=== PATIENT | female | born 1990 | race African-American/Black ===

== ENCOUNTER 2019-02-23 16:58 | Emergency (ER) | payer OTHER ==
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
[2019-02-23 18:25] LABS: Absolute Lymphocytes (CBC) 2.3 K/uL (0.7-4.9); Absolute Monocytes 0.3 K/uL (0.1-1.3); Absolute Neutrophil 1.6 K/uL (1.8-8.0); Basophils % 1.2 % (0-1.3); Eosinophils % 4.6 % (0-4.4); Lymphocytes % 51.9 % (15.3-44.8); MPV 9.6 fL (7.6-11.3); Monocytes % 7.3 % (3.3-12.3); RBC Red Blood Cell Count 4.47 M/uL (3.86-4.86)
[2019-02-23 18:46] LABS: ALT/SGPT 17 U/L (12-78); AST/SGOT 19 U/L (15-37); Albumin 3.8 g/dL (3.4-5.0); Alkaline Phosphatase 47 U/L (45-117); BUN Blood Urea Nitrogen 14 mg/dL (7-18); Bicarbonate 26 mmol/L (21-32); Bilirubin Direct < 0.1 mg/dL (0-0.2); Bilirubin Total 0.3 mg/dL (0.2-1.0); Glucose Level 89 mg/dL (74-106); Potassium 3.7 mmol/L (3.5-5.1); Protein, Total 9.3 g/dL (6.4-8.2); Sodium Level 140 mmol/L (136-145)
--- NOTE | 2019-02-23 18:58 | EDPHYS ---
Physician Documentation [facility] Name: Nida Alcantara Age: 28 yrs Sex: Female : 1990 Arrival Date: 02/23/2019 Time: 17:03 Bed 18 Private MD: ED Physician Marcial Hemphill HPI: 02/23 18:01 This 28 yrs old Black Female presents to ER via Ambulatory with complaints of Blurred kdr Vision, Weakness. 18:02 The patient has been feeling generally fatigued and weak for the past few weeks and kdr even with a good nights sleep. Today, she had a about 10 minutes of generalized blurry vision which has since resolved. She has had similar episodes in the past which have been related to anemia and poor cell counts. Onset: The symptoms/episode began/occurred gradually, 2 week(s) ago. Severity of symptoms: At their worst the symptoms were mild in the emergency department the symptoms are unchanged. The patient has experienced similar episodes in the past, a few times. The patient has not recently seen a physician. 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 - Social history:: Smoking status: Patient/guardian denies using tobacco. - Ebola Screening: : Patient negative for fever greater than or equal to 101.5 degrees Fahrenheit, and additional compatible Ebola Virus Disease symptoms Patient denies exposure to infectious person Patient denies travel to an Ebola-affected area in the 21 days before illness onset No symptoms or risks identified at this time. ROS: 18:02 Constitutional: Negative for fever, chills, and weight loss - only general fatigue and kdr weakness Eyes: Negative for injury, pain, redness, and discharge, ENT: Negative for injury, pain, and discharge, Neck: Negative for injury, pain, and swelling, Cardiovascular: Negative for chest pain, palpitations, and edema, Respiratory: Negative for shortness of breath, cough, wheezing, and pleuritic chest pain, Abdomen/GI: Negative for abdominal pain, nausea, vomiting, diarrhea, and constipation, Back: Negative for injury and pain, : Negative for injury, bleeding, discharge, and swelling, MS/Extremity: Negative for injury and deformity, Skin: Negative for injury, rash, and discoloration, Neuro: Negative for headache, weakness, numbness, tingling, and seizure activity. Psych: Negative for depression, anxiety, suicide ideation, homicidal ideation, and hallucinations, Allergy/Immunology: Negative for hives, rash, and allergies, Endocrine: Negative for neck swelling, polydipsia, polyuria, polyphagia, and marked weight changes, Hematologic/Lymphatic: Negative for swollen nodes, abnormal bleeding, and unusual bruising. Exam: 18:02 Constitutional: This is a well developed, well nourished patient who is awake, alert, kdr and in no acute distress. Head/Face: Normocephalic, atraumatic. Eyes: Pupils equal round and reactive to light, extra-ocular motions intact. Lids and lashes normal. Conjunctiva and sclera are non-icteric and not injected. Cornea within normal limits. Periorbital areas with no swelling, redness, or edema. Neck: Trachea midline, no thyromegaly or masses palpated, and no cervical lymphadenopathy. Supple, full range of motion without nuchal rigidity, or vertebral point tenderness. No Meningismus. Chest/axilla: Normal chest wall appearance and motion. Nontender with no deformity. No lesions are appreciated. Cardiovascular: Regular rate and rhythm with a normal S1 and S2. No gallops, murmurs, or rubs. Normal PMI, no JVD. No pulse deficits. Respiratory: Lungs have equal breath sounds bilaterally, clear to auscultation and percussion. No rales, rhonchi or wheezes noted. No increased work of breathing, no retractions or nasal flaring. Abdomen/GI: Soft, non-tender, with normal bowel sounds. No distension or tympany. No guarding or rebound. No evidence of tenderness throughout. Back: No spinal tenderness. No costovertebral tenderness. Full range of motion. Skin: Warm, dry with normal turgor. Normal color with no rashes, no lesions, and no evidence of cellulitis. MS/ Extremity: Pulses equal, no cyanosis. Neurovascular intact. Full, normal range of motion. Neuro: Awake and alert, GCS 15, oriented to person, place, time, and situation. Cranial nerves II-XII grossly intact. Motor strength 5/5 in all extremities. Sensory grossly intact. Cerebellar exam normal. Normal gait. Psych: Awake, alert, with orientation to person, place and time. Behavior, mood, and affect are within normal limits. Vital Signs: 17:16 BP 115 / 76; Pulse 76; Resp 16; Temp 98.2; Pulse Ox 98% ; Weight 77.11 kg; Height 5 ft. iw 5 in. (165.10 cm); 18:23 BP 128 / 94; Pulse 70; Resp 18; Pulse Ox 100% on R/A; hj 19:10 BP 121 / 80; Pulse 75; Resp 16; Temp 98.7; Pulse Ox 99% on R/A; rr5 17:16 Body Mass Index 28.29 (77.11 kg, 165.10 cm) iw MDM: 18:58 Patient medically screened. kdr 18:59 Data reviewed: vital signs, nurses notes. Counseling: I had a detailed discussion with kdr the patient and/or guardian regarding: the historical points, exam findings, and any diagnostic results supporting the discharge/admit diagnosis, lab results, the need for outpatient follow up. Special discussion: I discussed with the patient/guardian in detail that at this point there is no indication for admission to the hospital. It is understood, however, that if the symptoms persist or worsen the patient needs to return immediately for re-evaluation. 02/23 18:01 Order name: CBC with Diff kdr 02/23 18:01 Order name: Chem 7; Complete Time: 18:56 kdr 02/23 18:01 Order name: LFT's; Complete Time: 18:56 kdr 02/23 19:13 Order name: CBC Smear Scan EDMS Administered Medications: No medications were administered Disposition: 02/23/19 18:58 Discharged to Home. Impression: Chronic fatigue, unspecified, Weakness, Anemia, unspecified. - Condition is Stable. - Discharge Instructions: Anemia, Nonspecific, Fatigue, Weakness, [id number]. - Medication Reconciliation Form, Thank You Letter form. - Follow up: Private Physician; When: 2 - 3 days; Reason: If symptoms return, Further diagnostic work-up, Recheck today's complaints, Continuance of care, Re-evaluation by your physician. - Problem is new. - Symptoms are unchanged. Signatures: Dispatcher [employer] EDMS Marcial Hemphill, MD MD kdr Lara Espinoza, RN RN iw Jered Guy, RN RN rr5 Corrections: (The following items were deleted from the chart) 19:15 18:58 02/23/2019 18:58 Discharged to Home. Impression: Chronic fatigue, unspecified; rr5 Weakness; Anemia, unspecified. Condition is Stable. Forms are Medication Reconciliation Form, Thank You Letter, Antibiotic Education, Prescription Opioid Use. Follow up: Private Physician; When: 2 - 3 days; Reason: If symptoms return, Further diagnostic work-up, Recheck today's complaints, Continuance of care, Re-evaluation by your physician. Problem is new. Symptoms are unchanged. kdr
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
[2019-02-23 19:11] LABS: Platelet Estimate ADEQ; Urine White Blood Cell Casts OK
[2019-02-23 19:12] LABS: Blood Morphology Comment NOT SEEN (NOT SEEN)
== END 2019-02-23 19:15 | disposition home or self-care (01) ==
LOC: ER 16:58
DX: R53.82 Chronic fatigue, unspecified (principal); R53.1 Weakness; D64.9 Anemia, unspecified
CPT/HCPCS: 36415; 80048; 80076; 85025; 99283

== ENCOUNTER 2020-03-25 09:48 | Day surgery (SDC) | payer OTHER ==
[2020-03-25] MEDS ORDERED: Ringers Lactate 1,000 ML IV ONE (10:22)
[2020-03-25 10:38] VITALS: BMI 29.0
[2020-03-25] MEDS ORDERED: FENTANYL CITR 100 MCG/2 ML ONE ×2 (11:01→11:02)
[2020-03-25] MEDS ORDERED: MIDAZOLAM HCL 2 MG/2 ML INJ ONE ×2 (11:02)
[2020-03-25] MEDS ORDERED: FLUMAZENIL 0.1 MG/ML (5 mL VIAL) IV ONE (11:03)
[2020-03-25] MEDS ORDERED: NALOXONE 0.4 MG/ML VIAL ONE (11:04)
--- NOTE | 2020-03-25 12:57 | RAD REPORT ---
EXAM DESCRIPTION: CT - Renal Biopsy CT - 03/25/2020 12:25 pm CLINICAL HISTORY: EDEMA, FLUID Nephrotic syndrome COMPARISON: No comparisons FINDINGS: Preoperative diagnosis: Nephrotic syndrome Post operative diagnosis: Same Conscious Sedation: 45 minutes of conscious sedation utilizing fentanyl and midazolam IV. Patient was continuously monitored by nursing staff. Contrast used: NONE Estimated blood loss: less than 5 mL Specimens: 4 x 18 gauge specimens The patient was placed prone on the table and the left posterior flank area was prepped and draped in the usual sterile fashion. 1% lidocaine was infiltrated into the subcutaneous tissues for local anes thesia. Under computed tomographic guidance, a 17 gauge introducer was advanced into the lesion. Subs equently, a 18 gauge, 15 cm long, 20 mm throw core biopsy gun was advanced into the inferior left kid cris and 4 cores were obtained. Postprocedure imaging demonstrated no complications. Samples were given to pathology for analysis. Th e patient tolerated the procedure without immediate complication and transferred to the recovery room in stable condition. IMPRESSION: Successful CT-guided nonfocal left renal biopsy. 45 minutes of IV conscious sedation was utilized. All CT scans are performed using dose optimization technique as appropriate and may include automated exposure control or mA/KV adjustment according to patient size.
--- OUTSIDE RECORDS SUMMARY | 2020-03-25 13:47 | XMS REPORT | Clinical Summary ---
:1990 Author Organization [facility] Address [address] [place] [address] Care Team Providers Name Role Phone Asked, No Pcp Primary Care Provider Unavailable Allergies No Known Allergies Medications No known medications Active Problems Not on file Encounters Date Type Specialty Care Team Description 03/22/2020 Travel 03/22/2020 Transcribe Orders Procedural Cardiology Puja Kenny Murmur (Primary Dx) MD after 03/25/2019 Social History Tobacco Use Types Packs/Day Years [...] six or more drinks on one occasion? No t asked Sex Assigned at Date Recorded Not on file Job Start Date Occupation Industry Not on file Not on file Not on file Travel History Travel Start Travel End No recent travel history available. COVID-19 Exposure Response Date Recorded In the last month, have you been in contact with No / Unsure 03/22/2020 3:23 PM CDT someone who was confirmed or suspected to have Coronavirus / COVID-19? Last Filed Vital Signs Not on file Plan of Treatment Date Type Specialty Care Team Description 03/27/2020 [place] [id number] [facility] [address], [address] [place], [place] [address] 03/27/2020 Appointment Procedural Cardiology 03/27/2020 Appointment Procedural Cardiology 04/15/2020 Office Visit [place]umatology Tara Fernán[place] [address] [facility] [address] [place], [place] [address] [phone] Health Maintenance Due Date Last Done Comments CERVICAL CANCER SCREENING 2012 INFLUENZA VACCINE 04/27/2020 Results Not on fileafter 03/25/2019 Advance Directives For more information, please contact: [phone] Type Date 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
[2020-03-25 14:14] VITALS: BP 116/80; TEMP 98.5; O2SAT 96
== END 2020-03-25 14:35 | disposition home or self-care (01) ==
LOC: DS 09:48
PROVIDERS: ATTEND Internal Medicine Nephrology
DX: M32.14 Glomerular disease in systemic lupus erythematosus (principal); E87.70 Fluid overload, unspecified
CPT/HCPCS: 88300; 50200; J2250; J3010; J7120; 88305; J2310

== ENCOUNTER 2020-04-08 00:12 | Emergency (ER) | payer OTHER ==
--- OUTSIDE RECORDS SUMMARY | 2020-04-08 00:18 | XMS REPORT | Clinical Summary ---
:1990 Author Organization [facility] Address [address] [place] [address] Care Team Providers Name Role Phone Cristóbal Henao MD Primary Care Provider Allergies No Known Allergies Medications Medication Sig Dispensed Refills Start End Date Status Date furosemide (LASIX) 40 2 (two) 0 Active mg tablet times a 0 day. rosuvastatin (CRESTOR) daily. 0 Active 10 mg tablet 0 spironolactone Take 50 mg 0 Acti ve (ALDACTONE) 50 MG by mouth 2 0 tablet (two) times a day. multivitamin with Take 1 0 Ac tive minerals tablet tablet by mouth daily. NON FORMULARY Black Seed 0 Activ e Oil 1000 mg QD hydrOXYchloroQUINE Take 1 60 tablet 0 05/01/20 A ctive (PLAQUENIL) 200 mg tablet (200 0 20 tabletIndications: mg total) Other systemic lupus by mouth erythematosus with daily for 7 glomerular disease days, THEN (HCC) 2 tablets (400 mg total) daily for 23 days. 1 tablet daily for 7 days then 2 tablets daily. predniSONE (DELTASONE) Take 3 90 tablet 1 0 Active 20 mg tablet tablets (60 0 20 mg total) by mouth daily for [address] 10 mg 0 04/01/20 Discontinued (SAPHRIS) 10 mg tablet, under the 20 (Error) sublingual tongue 2 (two) times a day. Active Problems Problem Noted Date Systemic lupus erythematosus with glomerular disease 0 04/01/2020 Pericardial effusion 04/01/2020 Murmur 03/27/2020 Chest pain 03/27/2020 Hyperlipidemia 03/27/2020 Edema 03/27/2020 SOB (shortness of breath) 03/27/2020 Encounters Date Type Specialty Care Team Description 04/03/2020 Orders Only Rheumatology Tara Fernández, 04/03/2020 Nurse Only Rheumatology Tara Fernández, 04/03/2020 Orders Only Rheumatology Tara Fernández, 04/03/2020 Orders Only Rheumatology Tara Fernández, 04/02/2020 Telephone Rheumatology Brett Cao MA 04/01/2020 Office Visit Rheumatology Tara Fernández, Maureen system ic lupus erythematosus with glomerular disease (HCC) (Primary Dx); DO Lupus nephritis , ISN/RPS class IV (HCC); Medication nico toring encounter; Long-term use o f high-risk medication; 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; Polyclonal gamm opathy; LAD (lymphadeno j luis) 04/01/2020 Orders Only Rheumatology Tara Fernández, 04/01/2020 Orders Only Rheumatology Brett Cao systemic lupus RTONI erythematosus w ith glomerular dise ase (HCC) (Primary Dx) 04/01/2020 Travel 03/27/2020 Hospital Encounter Radiology Puja Kenny Perica rdial effusion 03/27/2020 Office Visit Cardiology Puja Kenny Murmur (Prim bob Dx); Hyperlipidemia, unspecified hyperlipidemia type; Chest pain, uns pecified type; Edema, unspecif ied type; SOB (shortness of breath); Pericardial eff usion 03/27/2020 Travel 03/22/2020 Travel 03/22/2020 Transcribe Orders Procedural Puja Kenny Murmur (Primary Dx) Cardiology MD after 04/08/2019 Family History Medical History Relation Name Comments No Known Problems Brother No Known Problems Father No Known Problems Mother No Known Problems Sister Relation Name Status Comments Brother Father Mother Sister Social History Tobacco Use Types Packs/Day Years Used Date Former Smoker 0.5 Quit: 03/27/20 18 Smokeless Tobacco: Never Used Alcohol Use Drinks/Week oz/Week Comments Yes occasionally Alcohol Habits Answer Date Recorded How often [...] been in contact with No / Unsure 04/01/2020 12:33 PM CDT someone who was confirmed or suspected to have Coronavirus / COVID-19? Last Filed Vital Signs Vital Sign Reading Time Taken Comments Blood Pressure 111/78 04/01/2020 12:43 PM CDT Pulse 121 04/01/2020 12:43 PM CDT Temperature 37.1 C (98.8 F) 04/01/2020 12:43 PM CDT Respiratory Rate - - Oxygen Saturation 96% 04/01/2020 12:43 PM CDT Inhaled Oxygen Concentration - - Weight 83 kg (183 lb) 04/01/2020 12:43 PM CDT Height 167.6 cm (5' 6") 04/01/2020 12:43 PM CDT Body Mass Index 29.54 04/01/2020 12:43 PM CDT Plan of Treatment Date Type Specialty Care Team Description 04/08/2020 [place]med[place] [address] [facility] [address] [place], [place] [address] 04/10/2020 [place] [address] [facility] [address], [address] [place], [place] [address] Health Maintenance Due Date Last Done Comments CERVICAL CANCER SCREENING 2012 INFLUENZA VACCINE 04/27/2020 Procedures Procedure Name Priority Date/Time Associated Diagnosis Comme nts QUANTIFERON-TB GOLD Routine 04/01/2020 2:16 Resu lts for this PLUS PM CDT procedure are i n the results section. MICROSCOPIC Routine 04/01/2020 2:16 Results for this EXAMINATION PM CDT procedure are i n the results section. BETA-2 GLYCOPROTEIN 1 Routine 04/01/2020 2:16 Other systemic lupus Results for this ANTIBODY, IGG AND IGM PM CDT erythematosus with procedure are in glomerular disease the resul ts (HCC) section. CARDIOLIPIN ANTIBODIES Routine 04/01/2020 2:16 Other systemic lupus Results for this PM CDT erythematosus with procedure are in glomerular disease the resul ts (HCC) section. LUPUS ANTICOAGULANT Routine 04/01/2020 2:16 Other systemic michael pus Results for this PANEL PM CDT erythematosus with procedure are in glomerular disease the resul ts (HCC) section. HISTONE AB, IGG Routine 04/01/2020 2:16 Other systemic lupus Results for this PM CDT erythematosus with procedure are in glomerular disease the resul ts (HCC) section. ANTICENTROMERE B Routine 04/01/2020 2:16 Other systemic lupus Results for this ANTIBODIES PM CDT erythematosus with procedure are in glomerular disease the resul ts (HCC) section. MYOSITIS Routine 04/01/2020 2:16 Other systemic lupus Res ults for this PM CDT erythematosus with procedure are in glomerular disease the resul ts (HCC) section. SCL-70 ANTIBODY Routine 04/01/2020 2:16 Other systemic lupus Results for this PM CDT erythematosus with procedure are in glomerular disease the resul ts (HCC) section. SSA/SSB ANTIBODY Routine 04/01/2020 2:16 Other systemic lupus Results for this PM CDT erythematosus with procedure are in glomerular disease the resul ts (HCC) section. CYCLIC CITRULLINATED Routine 04/01/2020 2:16 Other systemic l upus Results for this PEPTIDE AB, IGG PM CDT erythematosus with proced ure are in glomerular disease the resul ts (HCC) section. RHEUMATOID FACTOR Routine 04/01/2020 2:16 Other systemic lupu s Results for this PM CDT erythematosus with procedure are in glomerular disease the resul ts (HCC) section. URINALYSIS, AUTOMATED Routine 04/01/2020 2:16 Other systemic lupus Results for this WITH MICROSCOPY PM CDT erythematosus with proced ure are in glomerular disease the resul ts (HCC) section. C-REACTIVE PROTEIN Routine 04/01/2020 2:16 Other systemic lup us Results for this PM CDT erythematosus with procedure are in glomerular disease the resul ts (HCC) section. SEDIMENTATION RATE Routine 04/01/2020 2:16 Other systemic lup us Results for this PM CDT erythematosus with procedure are in glomerular disease the resul ts (HCC) section. COMPREHENSIVE Routine 04/01/2020 2:16 Other systemic lupus Re sults for this METABOLIC PANEL PM CDT erythematosus with proced ure are in glomerular disease the resul ts (HCC) section. CBC WITH PLATELET AND Routine 04/01/2020 2:16 Other systemic lupus Results for this DIFFERENTIAL PM CDT erythematosus with procedure are in glomerular disease the resul ts (HCC) section. QUANTIFERON-TB GOLD Routine 04/01/2020 2:16 Other systemic lupus Results for this PLUS PM CDT erythematosus with procedure are in glomerular disease the resul ts (HCC) section. CT CHEST WO CONTRAST STAT 03/27/2020 7:00 Pericardial effu sree Results for this PM CDT procedure are i n the results section. TTE COMPLETE, WO Routine 03/27/2020 3:43 Murmur Results for this CONTRAST, W DOPPLER PM CDT procedur e are in ([id number]) the results section. after 04/08/2019 Results QuantiFERON-TB Gold Plus (04/01/2020 2:16 PM CDT) Quantiferon criteria Comment [facility] 02 Comment: The QuantiFERON-TB Gold Plus result is determined by s ubtracting the Nil value from either TB antigen (Ag) tube. The mi togen tube serves as a control for the test. QuantiFERON TB1 Ag 0.15 IU/mL [facility] 02 Value QuantiFERON TB2 Ag 0.13 IU/mL [facility] 02 Value Quantiferon NIL value 0.13 IU/mL [facility] 02 Quantiferon mitogen 9.91 IU/mL [facility] 02 value Specimen Narrative Performed At Performed at: - [facility] [address] [id number] Supervisor Painting [employer]yard: Tex Crabtree MD, Phone: [phone] Performing Organization Address [facility] Phone Number [facility] 02 QuantiFERON-TB Gold Plus (04/01/2020 2:16 PM CDT) Pathologist [facility] nature QuantiFERON Incubation [facility] Incubation performed. Quantiferon TB gold Negative Negative [facility] 02 plus Specimen Narrative Performed At Performed at: - [facility] [place] [facility] [address] [place], [place] [address] 143 Super[employer]: Eris Samuels MD, Phone: [phone] Performed at: - [facility] [address] [id number] Supervisor Pain[employer]: Tex Crabtree MD, Phone: [phone] Performing Organization Address [facility]/State/Zipcode Phone Number [facility] 02 Myositis (04/01/2020 2:16 PM CDT) Mi-2 (nuclear Comment [facility] helicase protein) Comment: antibody Negative Reference Range: Qualitative test Negative: normal Positive: abnormal Ku antibody Comment [facility] Comment: Negative Reference Range: Qualitative test Negative: normal Positive: abnormal SRP (signal Comment [facility] recognition Comment: particle) Ab Negative Reference Range: Qualitative test Negative: normal Positive: abnormal PL-7 (threonyl-tRNA Comment [facility] synthetase) antibody Comment: Negative Reference Range: Qualitative test Negative: normal Positive: abnormal PL-12 (alanyl-tRNA Comment [facility] synthetase) antibody Comment: Negative Reference Range: Qualitative test Negative: normal Positive: abnormal EJ (glycyl-tRNA Comment [facility] synthetase) antibody Comment: Negative Reference Range: Qualitative test Negative: normal Positive: abnormal OJ (isoleucyl-tRNA Comment [facility] synthetase) antibody Comment: Negative Reference Range: Qualitative test Negative: normal Positive: abnormal Antibodies against PL-7 have a prevalence of approx. 3 % to up to 6% in myositis patients, partly overlapping with SLE, SSc or interstitial lung fibrosis. The prevalence of antibodies against other t-RNA synth etase antigens such as PL-12, EJ, OJ, is seen in in myositis patients up to 3-5%. Antibodies against Mi-2 are highly specific for dermatomyositis and can be found in 15-30% of patients . Antibodies against Ku have a prevalence of up to 10% i n systemic lupus erythematosus (SLE). The presence of SRP antibodies is predominantly associ ated with polymyositis. The prevalence of SRP antibodies in idiopathic inflammatory myopathy (IIM) is 4-5%. *This test has been developed and performance paramete rs have been validated by [employer] This te st has not been approved by the U.S. Food and Drug Administra tion (FDA); however, US FDA approval is not required for cl inical use. It is not intended that clinical diagnosis and pa tient management decisions be made using these results alone . This test has been validated using serum samples. The personnel assistant has not determined the efficacy of this t est when performed on CSF, plasma, joint or pleural fluid specimens. The performance characteristics of this breanna t were determined by [employer] Effective April 25, 2020 Myositis Panel I will be mad e non-orderable. No replacement number is available. For further information, please contact your local [facility]. Specimen Narrative Performed At Performed at: [facility] [address], [place] [id number] Supervisor [employer]: Jesse Vitale PhD, Phone: [phone] Performing Organization Address City/[facility] Phone Number [facility] Anticentromere B Antibodies (04/01/2020 2:16 PM CDT) Pathologist Sig nature Centromere antibody <0.2 0.0 - 0.9 AI [facility] Specimen Narrative Performed At Performed at: [address] [place] [address] [id number] 143 Supervisor Pain[employer]: Eris Samuels MD, Phone: [phone] Performing Organization Address [facility] Phone Number [facility] Microscopic Examination (04/01/2020 2:16 PM CDT) Pathologist Sig nature WBC, UA 0-5 0 - 5 /hpf [facility] RBC, UA 0-2 0 - 2 /hpf [facility] Epithelial cells (non renal) 0-10 0 - 10 /hpf [facility] Mucus, UA Present Not Estab. [facility] Bacteria, UA Few None seen/Few [facility] Specimen Narrative Performed At Performed at: [facility] [address] [id number] 143 Supervisor Painting [employer]: Eris Samuels MD, Phone: [phone] Performing Organization Address [facility] Phone Number [facility] Scl-70 antibody (04/01/2020 2:16 PM CDT) Pathologist Sig nature Scleroderma SCL-70 Ab <0.2 0.0 - 0.9 AI [facility] Specimen Blood Narrative Performed At Performed at: [address] [place] [address] [id number] 143 Supervisor Pain[employer]: Eris Samuels MD, Phone: [phone] Performing Organization Address [facility] Phone Number [facility] SSA/SSB antibody (04/01/2020 2:16 PM CDT) Pathologist Sig nature Sjogren's SS-A antibody >8.0 (H) 0.0 - 0.9 AI [facility] Sjogren's SS-B antibody >8.0 (H) 0.0 - 0.9 AI [facility] Specimen Blood Narrative Performed At Performed at: [facility] [place] [facility] [address] [place], [place] [address] 143 Super[employer]: Eris Samuels MD, Phone: [phone] Performing Organization Address [facility] Phone Number [facility] Histone Ab, IgG (04/01/2020 2:16 PM CDT) Pathologist Sig nature Histone Ab 8.5 (H) 0.0 - 0.9 Units [facility] Comment: Negative <1.0 Weak Positive 1.0 - 1.5 Moderate Positive 1.6 - 2.5 Strong Positive >2.5 Specimen Blood Narrative Performed At Performed at: [facility] [address] [place], [place] [address] 417 Super[employer]: Nayely Denise MD, Phone: [phone] Performing Organization Address [facility] Phone Number [facility] Cyclic citrullinated peptide antibody, IgG (04/01/2020 2:16 PM CDT) Pathologist Sig nature Cyclic citrullin 8 0 - 19 units [facility] peptide Ab Comment: Negative <20 Weak positive 20 - 39 Moderate positi ve 40 - 59 Strong positive >59 Specimen Blood Narrative Performed At Performed at: [facility] [address] [place], [place] [address] 689 [employer]: Nayely Denise MD, Phone: [phone] Performing Organization Address [facility] Phone Number [facility] Beta-2 glycoprotein 1 antibody, IgG and IgM (04/01/2020 2:16 PM CDT) Beta-2 glycoprotein <9 0 - 20 GPI [facility] 1 antibody, IgG Comment: IgG units The reference interval reflects a 3SD or 99th percenti le interval, which is thought to represent a potentially clinically significant result in accordance with the International Consensus Statement on the classification criteria for definitive antiphospho lipid syndrome (APS). J Thromb Haem 2006;4:295-306. Beta-2 glycoprotein <9 0 - 32 GPI [facility] 1 antibody, IgM Comment: IgM units The reference interval reflects a 3SD or 99th percenti le interval, which is thought to represent a potentially clinically significant result in accordance with the International Consensus Statement on the classification criteria for definitive antiphospho lipid syndrome (APS). J Thromb Haem 2006;4:295-306. Specimen Blood Narrative Performed At Performed at: [address] [place] [id number] Super[employer]: Nayely Denise MD, Phone: [phone] Performing Organization Address [facility] Phone Number [facility] Lupus anticoagulant panel (04/01/2020 2:16 PM CDT) Dilute prothrombin 38.3 0.0 - 55.0 [facility] time sec dPT confirm ratio 1.06 0.00 - 1.40 [facility] Ratio Thrombin time 1:1 17.7 0.0 - 23.0 [facility] sec PTT lupus 32.8 0.0 - 51.9 [facility] anticoagulant sec DRVVT 38.8 0.0 - 47.0 [facility] sec Lupus reflex Comment:Comment: No [facility] interpretation lupus anticoagulant was detected. Specimen Blood Narrative Performed At Performed at: [address] [place] [id number] Supervisor [employer]: Nayely Denise MD, Phone: [phone] Performing Organization Address [facility] Phone Number [facility] Cardiolipin antibodies (04/01/2020 2:16 PM CDT) Cardiolipin IgG 21 (H) 0 - 14 GPL [facility] Comment: U/mL Negative: <15 Indeterminate: 15 - 20 Low-Med Positiv e: >20 - 80 High Positive: >80 Cardiolipin IgM 13 (H) 0 - 12 MPL [facility] Comment: U/mL Negative: <13 Indeterminate: 13 - 20 Low-Med Positiv e: >20 - 80 High Positive: >80 Anticardiolipin Ab, IgA, <9 0 - 11 APL [facility] qn Comment: U/mL Negative: <12 Indeterminate: 12 - 20 Low-Med Positiv e: >20 - 80 High Positive: >80 Specimen Blood Narrative Performed At Performed at: [facility] [address], [place], [place] [address] Supervisor [employer]: Nayely Denise MD, Phone: [phone] Performing Organization Address [facility] Phone Number [facility] Urinalysis, automated with microscopy (04/01/2020 2:16 PM CDT) Specific gravity, 1.013 1.005 - 1.030 [facility] urine pH, urine 6.0 5.0 - 7.5 [facility] Color, UA Yellow Yellow [facility] Appearance Clear Clear [facility] WBC esterase, urine Negative Negative [facility] Protein, UA 3+ (A) Negative/Trace [facility] Glucose, urine Negative Negative [facility] Ketones, UA Negative Negative [facility] Occult blood, urine Negative Negative [facility] Bilirubin, UA Negative Negative [facility] Urobilinogen, UA 0.2 0.2 - 1.0 mg/dL [facility] Nitrite, UA Negative Negative [facility] Microscopic See below:Comment: [facility] examination Microscopic was indicated and was performed. Specimen Urine Narrative Performed At Performed at: [address] [place] [address] [id number] 143 Super[employer]: Eris Samuels MD, Phone: [phone] Performing Organization Address [facility] Phone Number [facility] Sedimentation rate (04/01/2020 2:16 PM CDT) Pathologist Sig [facility] Sedimentation rate 49 (H) 0 - 32 mm/hr [facility] Specimen Blood Narrative Performed At Performed at: [address] [place] [address] [address] 143 Supervisor [employer]: Eris Samuels MD, Phone: [phone] Performing Organization Address [facility] Phone Number [facility] CBC with platelet and differential (04/01/2020 2:16 PM CDT) Pathologist Sig nature WBC 3.1 (L) 3.4 - 10.8 x10E3/uL [facility] RBC 3.98 3.77 - 5.28 [facility] x10E6/uL HGB 10.7 (L) 11.1 - 15.9 g/dL [facility] HCT 33.7 (L) 34.0 - 46.6 % [facility] MCV 85 79 - 97 fL [facility] MCH 26.9 26.6 - 33.0 pg [facility] MCHC 31.8 31.5 - 35.7 g/dL [facility] RDW 15.6 (H) 11.7 - 15.4 % [facility] Platelet count 267 150 - 450 x10E3/uL [facility] Neutrophils 57 Not Estab. % [facility] Lymphocytes 33 Not Estab. % [facility] Monocytes 8 Not Estab. % [facility] Eosinophils 1 Not Estab. % [facility] Basophils 0 Not Estab. % [facility] Neutrophils, absolute 1.8 1.4 - 7.0 x10E3/uL [facility] Lymphocytes, absolute 1.0 0.7 - 3.1 x10E3/uL [facility] Monocytes, absolute 0.2 0.1 - 0.9 x10E3/uL [facility] Eosinophils, absolute 0.0 0.0 - 0.4 x10E3/uL [facility] Basophils, absolute 0.0 0.0 - 0.2 x10E3/uL [facility] Immature granulocytes 1 Not Estab. % [facility] Immature grans (abs) 0.0 0.0 - 0.1 x10E3/uL [facility] Specimen Blood Narrative Performed At Performed at: [address] [address] 143 Super[employer]: Eris Samuels MD, Phone: [phone] Performing Organization Address [facility] Phone Number [facility] Rheumatoid factor (04/01/2020 2:16 PM CDT) Pathologist Sig nature Rheumatoid arthritis 96.6 (H) 0.0 - 13.9 IU/mL [facility] latex turbid Specimen Blood Narrative Performed At Performed at: [facility] [address] 143 Supervisor Pain[employer]: Eris Samuels MD, Phone: [phone] Performing Organization Address [facility] Phone Number [facility] C-reactive protein (04/01/2020 2:16 PM CDT) Pathologist Sig nature CRP <1 0 - 10 mg/L [facility] Specimen Blood Narrative [facility]formed At [facility] [id number] 143 Supervisor Pain[employer]: Eris Samuels MD, Phone: [phone] Performing Organization Address City/[facility]/Zipcode Phone Number [facility] Comprehensive metabolic panel (04/01/2020 2:16 PM CDT) [facility] nature Glucose 76 65 - 99 mg/dL [facility] BUN 10 6 - 20 mg/dL [facility] Creatinine 0.81 0.57 - 1.00 mg/dL [facility] EGFR Non-Afr. Gambian 99 >59 mL/min/1.73 [facility] EGFR 114 >59 mL/min/1.73 [facility] BUN/creatinine ratio 12 9 - 23 [facility] Sodium 136 134 - 144 mmol/L [facility] Potassium 4.4 3.5 - 5.2 mmol/L [facility] Chloride 104 96 - 106 mmol/L [facility] CO2 23 20 - 29 mmol/L [facility] Calcium 7.9 (L) 8.7 - 10.2 mg/dL [facility] Protein 6.7 6.0 - 8.5 g/dL [facility] Albumin, S 2.0 (L) 3.9 - 5.0 g/dL [facility] Globulin, total 4.7 (H) 1.5 - 4.5 g/dL [facility] Albumin/globulin ratio 0.4 (L) 1.2 - 2.2 [facility] Total bilirubin 0.3 0.0 - 1.2 mg/dL [facility] Alkaline phosphatase 34 (L) 39 - 117 IU/L [facility] AST 17 0 - 40 IU/L [facility] ALT 9 0 - 32 IU/L [facility] Specimen Blood Narrative Performed At Performed at: [facility] [address] [place], [place] [address] 143 Supervisor [employer]: Eris Samuels MD, Phone: [phone] Performing Organization Address [facility]/Zipcode Phone Number [facility] CT Chest Wo Contrast (03/27/2020 7:00 PM CDT) Specimen Narrative Performed At EXAMINATION: CT CHEST WO CONTRAST HM RADIANT CLINICAL HISTORY: I31.3 Pericardial effusion (noninfla mmatory), pericardial effusion SLE TECHNIQUE: Multi-detector computed axial tomography (C AT) of the chest was performed without IV iodinated contrast. Coronal m aximum intensity projections of the chest, and sagittal and coronal com puterized reformatted images of the chest were cre ated at a workstation and archived for review. DOSE REDUCTION: CT imaging was performed with iterativ e reconstruction technique and/or automated exposure cont rol to reduce radiation dose. COMPARISON: None. IMPRESSION: 1.Serositis secondary to systemic lupus erythematosus: Moderate circumferential pericardial effusion without CT eviden ce of tamponade and trace bilateral pleural effusions ar e also seen. 2.Bilateral multifocal linear subsegmental atelectasis . No evidence of pneumonitis. 3.Bilateral axillary and subpectoral lymphadenopathy i s a common finding associated with systemic lupus arithmeti c ptosis. FINDINGS: Moderate circumferential low attenuation pericardial e ffusion measure up to 1.9 cm in thickness[address] No [address] evidence o f tamponade. Heart is normal in size. No coronary art alexandru calcification. Aorta is nonaneurysmal and without intimal calcificati on. Pulmonary artery is normal in diameter. Clustered subcentimeter bilateral axillary and subpect oral lymph nodes. Subcentimeter lower internal jugular, prevascular, and paratracheal lymph nodes are also present. No mediastinal mass, thyroid nodule, or abnormality of the esophagus. Bilateral multifocal linear subsegmental atelectasis a nd trace low-attenuation pleural effusions. No acute or suspicious osseous lesion is identified. [facility]-[id number] Procedure Note [facility], Radiology Results - 03/27/2020 7:13 PM CDT EXAMINATION: CT CHEST WO CONTRAST CLINICAL HISTORY: I31.3 Pericardial effu sree (noninflammatory), pericardial effusion SLE TECHNIQUE: Multi-detector computed axial tomography (CAT) of the chest was performed without IV iodinated contrast. Coronal maximum intensity projections of the chest, and sagittal and coronal computerized reformatted images of the chest were cre ated at a workstation and archived for review. DOSE REDUCTION: CT imaging was performed with iterative reconstruction technique and/or automated exposure control to reduce radiation dose. COMPARISON: None. IMPRESSION: 1.Serositis secondary to systemic lupus erythematosus: Moderate circumferential pericardial effusion without CT evidence of tamponade and trace bilateral pleural effusions are also seen. 2.Bilateral multifocal linear subsegment al atelectasis. No evidence of pneumonitis. 3.Bilateral axillary and subpectoral lym phadenopathy is a common finding associated with systemic lupus arithmetic ptosis. FINDINGS: Moderate circumferential low attenuation pericardial effusion measure up to 1.9 cm in thickness. No CT evidence of tamponade. Heart is normal in size. No coronary art alexandru calcification. Aorta is nonaneurysmal and without intim al calcification. Pulmonary artery is normal in diameter. Clustered subcentimeter bilateral axilla ry and subpectoral lymph nodes. Subcentimeter lower internal jugular, prevascular, and paratracheal lymph nodes are also present. No mediastinal mass, thyroid nodule, or abnormality of the esophagus. Bilateral multifocal linear subsegmental atelectasis and trace low-attenuation pleural effusions. No acute or suspicious osseous lesion is identified. [facility]-[id number] Performing Organization Address City/State/Zipcode Phone Number [employer] [address] [place] [address] Transthoracic Echocardiogram Complete, (w Contrast, Strain and 3D if needed) (03/27/2020 3:43 PM CDT) Pathologist Sig nature Velocity Ratio (V1/V2) 0.67 m/s [facility] LV Mass 155.00 (g) [facility] IVS,d 1.14 cm [facility] EF 64.10 % [facility] LVPWD,d 1.09 cm [facility] AoV Mean PG 4.58 mmHg [facility] AV LVOT peak gradient 3.84 mmHg [facility] MV valve area p 1/2 method 4.07 cm2 [facility] PV Pk Grad 2.99 mmHg [facility] E/A ratio 2.37 [facility] TDI SEPTAL e' 1.5 [facility] E wave decelartion time 186.61 msec [facility] LVOT Diam,S 1.98 cm [facility] LVOT area 3.08 cm2 [facility] LVOT Vmax 0.98 m/s [facility] LVOT VTI 0.19 m [facility] AoV Peak PG 8.56 mmHg [facility] PV Mean Grad 1.95 mmHg HM [facility] MV Peak E David 0.97 m/s [facility] MV stenosis pressure 1/2 time 54.12 ms [facility] MV Peak A David 0.41 m/s [facility] BSA 1.91 m2 [facility] Ao Root Diameter 2.82 cm [facility] AoV Area, Vmax 2.07 cm2 [facility] AoV Area, VTI 2.00 cm2 [facility] AoV Vmax 1.46 m/s [facility] BSA Varela 1.99 m2 [facility] BSA Haycock 1.97 m2 [facility] IVS/LVPW,2D 1.05 [facility] Left Atrium Dimension Anterior 3.68 cm [facility] LV,d 4.10 cm [facility] LV,s 2.69 cm [facility] PV VMAX 0.86 m/s [facility] PV VTI 0.20 m [facility] RVSP (TR) 28.04 mmHg [facility] TR Vpeak 2.21 mm/s [facility] BMI 29.05 kg/m2 [facility] MV E A ratio 2.37 [facility] RA pressure 10.00 mmHg [facility] TR pk grad 18.04 mmHg [facility] AoV area i VTI BSA Mishel 1.05 cm2/m2 [facility] PV Vmn 0.68 [facility] LA Vol 4C 50.00 ml [facility] RVSP 28.04 mmHg [facility] Ao Root Diameter 2.82 cm [facility] Mitral Valve E/E' 6.5 [facility] LV SYS VOL 26.72 ml [facility] LV MELENDEZ VOL 74.42 ml [facility] LA area s A4C 18.42 cm2 [facility] LA Vol MOD A4C 47.13 ml [facility] LV SI Teich 2D 24.94 ml/m2 [facility] LV SV Teich 2D 47.70 ml [facility] LV Vol s Teich PSAX 26.72 ml [facility] LVOT SI 30.22 ml/m2 [facility] AoV Vmn 1.00 [facility] LV FS Cube 2D 34.51 [facility] LV FS Teich 2D 34.51 [facility] LV MASS INDEX 81.00 [facility] LA VOL 2C 46.00 ml [facility] E/E' ratio 0.65 [facility] AoV VTI 0.29 m [facility] LV EF,2D 71.92 % [facility] MV AE ratio 0.42 [facility] LVOT Vmn 0.68 [facility] Pt Size 167.64 [facility] Pt Wt 81.65 [facility] Aov area Vmn 2.08 cm2 [facility] LA A_P score P 1.51 [facility] LVOT mean grad 2.16 mmHg [facility] AoV area I VMN bsa 1.09 cm2/m2 [facility] LV SI Cube 2D 26.00 ml/m2 [facility] LV SV Cube 2D 49.73 ml [facility] LV vol d cube 2D 69.15 ml [facility] LV vol s cube 2D 19.42 ml [facility] MV Decel slope 5.22 m/s2 [facility] Specimen Narrative Performed At This result has an attachment that is no t available. The left ventricular chamber size is normal. Left ventricular systolic [facility] function is normal. Left Ventricular ejection fraction is 60 - 65%. Normal left ventricular wall thickness and regional wall dejuan on. RVSP Is 25 mm Hg with estimated RAP of 5 mm Hg. There is a moderate pericardial effusion, that sidney ures 1.4 cmposteriorly to the left ventricle. 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
--- OUTSIDE RECORDS SUMMARY | 2020-04-08 00:23 | XMS REPORT | Continuity of Care Document ---
:1990 Author Organization [facility] t Address 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 04-01 Method[facility] erythemato erythemato 00:00: st daniel with daniel with 00 glomerular glomerular disease disease Pericardia Pericardia Disease Active [place] l effusion l effusion 04-01 Me thodi 00:00: st 00 Murmur Murmur Disease Active [place] 03-27 Methodi 00:00: st 00 Chest pain Chest pain Disease Active [place] 03-27 Methodi 00:00: st 00 Hyperlipid Hyperlipid Disease Active [place] emia emia 03-27 Methodi 00:00: st 00 Edema Edema Disease Active [place] 03-27 Methodi 00:00: st 00 SOB SOB Disease Active [place] (shortness (shortness 03-27 Me thodi of breath) of breath) 00:00: st 00 Allergies, Adverse Reactions, Alerts This patient has no known allergies or adverse reactions. Family History Family Member Diagnosis Comments Start Date Stop Date Source Natural brother No Known Problems [place] [facility] Jew Natural father No Known Problems Niya buchanan Jew Natural mother No Known Problems Niya buchanan Jew Natural sister No Known Problems Niya buchanan Jew Social History Social Habit Start Date Stop Date Quantity Comments Source History [facility] Alcohol Std Drinks Method ist History [facility] Alcohol Binge Jew Sex Assigned At [place] Jew Exposure to Not sure [place] SARS-CoV-2 (event) Method ist Cigarettes smoked 2020-04-01 2020-04-01 [place] current (pack per 00:00:00 00:00:[address] day) - Reported Alcohol intake 2020-04-01 2020-04-01 Current drinker of [place] [facility] 00:00:00 00:00:00 alcohol (finding) [facility] Alcohol Comment 2020-03-27 2020-03-27 occasionally [place] 00:00:00 00:00:00 Jew History [facility] 2018-12-01 2018-12-01 1 [place] Alcohol Frequency 00:00:00 00:00:[address] History of tobacco 2018-03-27 Current smoker [place] [facility] use 00:00:00 Jew Smoking Status Start Date Stop Date Source Former smoker 2020-04-01 00:00:00 2020-04-01 00:00:00 [place] Jew Medications Ordered Filled Start Stop Current Ordering Indication Dosage Frequency Signature Comments Components Source Medication Medication Date Date Medication? Clinician (SIG) Name Name asenapine 2019- 2020- No 10mg Q.5D Place 10 Niya buchanan maleate 04-01- mg under Method[facility] (SAPHRIS) 13:16: 00:00 the tongue s t 10 mg 11 :00 2 (two) tablet, times a sublingual day. multivitami 2020-0 Yes 1{tbl} QD Take 1 [place] [facility] n with -06 tablet by Method[facility] minerals 12:43: mouth st tablet 52 daily. NON 2020-0 Yes Black Seed [place] FORMULARY 04-01 Oil 1000 Method i 12:43: mg QD st 52 hydrOXYchlo 2020-0 2020- Yes Other Take 1 [place] [facility] roQUINE 04-01 08-05 systemic tablet Metho di (PLAQUENIL) 00:00: 23:59 lupus (200 mg s t 200 mg 00 :00 erythematos total) by tablet us with mouth glomerular daily for disease 7 days, (HCC) THEN 2 tablets (400 mg total) daily for 23 days. 1 tablet daily for 7 days then 2 tablets daily. predniSONE 2020- Yes 60mg QD Take 3 [place] (DELTASONE) 7 08-05 tablets Meth parris 20 mg 00:00: 23:59 ([address] tablet 00 :00 total) by mouth daily for 30 days. spironolact Yes 50mg Q.5D Take 50 mg [place] one 6-19 by mouth 2 [facility] (ALDACTONE) 00:00: (two) st 50 MG 00 times a tablet day. furosemide 2019-0 Yes Q.5D 2 (two) [place] (LASIX) 40 6-05 times a Method i mg tablet 00:00: day. st 00 rosuvastati 2019-0 Yes QD daily. [place] (CRESTOR) 5-29 Methodi 10 mg 00:00: st tablet 00 Vital Signs Vital Name Observation Time Observation Value Comments Source Systolic blood 2020-04-01 12:43:00 111 mm[Hg] Margaritoto n Jew pressure Diastolic blood 2020-04-01 12:43:00 78 mm[Hg] Jesika on Jew pressure Heart rate 2020-04-01 12:43:00 121 /min Sandor Polk Body temperature 2020-04-01 12:43:00 37.11 Elsie [place] Jew Body height 2020-04-01 12:43:00 167.6 cm Sandor Polk Body weight 2020-04-01 12:43:00 83.008 kg Sandor Polk BMI 2020-04-01 12:43:00 29.54 kg/m2 [place] Jew Oxygen saturation in 2020-04-01 12:43:00 96 /min [place] Jew Arterial blood by Pulse oximetry Procedures Procedure Date / Time Performing Clinician Source Performed QUANTIFERON-TB GOLD PLUS 2020-04-01 14:16:00 Tara Fernández CBC WITH PLATELET AND 2020-04-01 14:16:00 Tara Fernández DIFFERENTIAL COMPREHENSIVE METABOLIC 2020-04-01 14:16:00 Tara Fernández Jew PANEL SEDIMENTATION RATE 2020-04-01 14:16:00 Tara Fernández ethodist C-REACTIVE PROTEIN 2020-04-01 14:16:00 Tara Fernández ethodist URINALYSIS, AUTOMATED WITH 2020-04-01 14:16:00 Tara Fernández Misa Polk MICROSCOPY RHEUMATOID FACTOR 2020-04-01 14:16:00 Tara Fernández Me thodist CYCLIC CITRULLINATED 2020-04-01 14:16:00 Tara Fernández Jew PEPTIDE AB, IGG SCL-70 ANTIBODY 2020-04-01 14:16:00 Tara Fernández Meth odist MYOSITIS 2020-04-01 14:16:00 Tara Fernández Meth odist ANTICENTROMERE B 2020-04-01 14:16:00 Tara Fernández Met hodist ANTIBODIES HISTONE AB, IGG 2020-04-01 14:16:00 Tara Fernández Meth odist LUPUS ANTICOAGULANT PANEL 2020-04-01 14:16:00 Tara Fernández [place] CARDIOLIPIN ANTIBODIES 2020-04-01 14:16:00 Tara Fernándezt on Jew BETA-2 GLYCOPROTEIN 1 2020-04-01 14:16:00 Tara Fernández Margaritoto n Jew ANTIBODY, IGG AND IGM MICROSCOPIC EXAMINATION 2020-04-01 14:16:00 Tara Fernández Margar[place] Jew QUANTIFERON-TB GOLD PLUS 2020-04-01 14:16:00 Tara Fernández Niya ston Jew CT CHEST WO CONTRAST 2020-03-27 19:00:00 Shannen Kenny TTE COMPLETE, WO CONTRAST, 2020-03-27 15:43:00 Shannen Kenny W DOPPLER ([id number]) Plan of Care Planned Activity Planned Date Details Comments Source Future Scheduled 2020-04-27 INFLUENZA VACCINE Ines n Jew Test 00:00:00 [code = INFLUENZA VACCINE] Future Scheduled 2012 Screening for [facility]odist Test 00:00:00 malignant neoplasm of cervix (procedure) [code = 014652707] Encounters Start End Encounter Admission Attending Care Care Encounter Source Date/Time Date/Time Type Type Clinicians Facility Department ID 2020-04-01 2020-04-01 Outpatient JOLENE, [facility] [id number] 068 [place] 00:00:00 00:00:00 LAT[address] 2020-03-27 2020-03-27 Outpatient ZOYA, [facility] [id number] [place] 00:00:00 00:00:00 SHANNEN [address] 2020-03-27 2020-03-27 Outpatient [facility] [id number] 729 [place] 00:00:00 00:00:[address] 2020-03-27 2020-03-27 Outpatient [facility] [id number] 729 [place] 00:00:00 00:00:[address] 2020-03-27 2020-03-27 Outpatient ZYOA, [facility] [id number] [place] 00:00:00 00:00:[address] SHANNEN [address] Results Test Description Test Time Test Comments Results Result Comments Source Myositis 2020-04-04 10:10:00 Test Item Value Reference Range Interpretation Comme nts Mi-2 (nuclear helicase Comment Negat iveReference protein) antibody (test Rang e:Qualitative testNegative: code = 79551-5) normalPositi ve: abnormal Ku antibody (test code = Comment Neg ativeReference 90399-0) Range:Qualitati ve testNegative: normalPositive: abnormal SRP (signal recognition Comment Nega tiveReference particle) Ab (test code = Ra nge:Qualitative testNegative: 32357-0) normalPositive: abnormal PL-7 (threonyl-tRNA Comment Negative Reference synthetase) antibody Range:Q ualitative testNegative: (test code = 19125-8) normal Positive: abnormal PL-12 (alanyl-tRNA Comment NegativeR eference synthetase) antibody Range:Q ualitative testNegative: (test code = 33130-8) normal Positive: abnormal EJ (glycyl-tRNA Comment NegativeRefe rence synthetase) antibody Range:Q ualitative testNegative: (test code = 83808-4) normal Positive: abnormal OJ (isoleucyl-tRNA Comment NegativeR eference synthetase) antibody Range:Q ualitative testNegative: (test code = 93276-4) normal Positive: abnormalAntibod ies against PL-7 have a prevalen ce of approx. 3% toup to 6% in m yositis patients, partly overlapp ing with SLE,SSc or interstitial lung fibrosis.The pr evalence of antibodies agai nst other t-RNA synthetaseantig ens such as PL-12, EJ, OJ, is seen in in myositispatient s up to 3-5%.Antibodies against Mi-2 are highly specific fordermatomyosi tis and can be found in 15-30% of patients.Antibo dies against Ku have a prevalen ce of up to 10% insystemic lupu s erythematosus (SLE).The prese nce of SRP antibodies is p redominantly associatedwith polymyositis. The prevalence of S RP antibodies inidiopathic in flammatory myopathy (IIM) is 4-5%.*This test has been d eveloped and performance par ametershave been validated by [employer] This test hasnot been approved by the U.S. Food and Drug Administra tion(FDA); however, FDA approval is not required for cl inicaluse. It is not intended th at clinical diagnosis and p atientmanagement decisions be ma de using these results alone.T his test has been validated using serum samples. Themanufacturer has not determined the efficacy of this testwhen perfor med on CSF, plasma, joint o r pleural fluidspecimens. The performance characteristics of this test weredetermined by [employer] .Effective April 25, 2020 Myosit is Panel I will be made non- orderable. No replacement num mode is available. For further in formation, please contact your [facility] Supervisor Cereal. JAYANT (test code = JAYANT) Performed at: [facility] [address], [place], [place] [id number] Director: Jesse Vitale PhD, Phone: [phone] [place] MethodistQuantiFERON-TB Gold [id number] 08:14:00 Test Item Value Reference Range Interpretation Comments QuantiFERON Incubation Incubation performed. (test code = 5936) Quantiferon TB gold Negative Negative plus (test code = 60115-4) JAYANT (test code = JAYANT) Performed at: 01 - [facility] [address] [place], [place] [id number] Director: Eris Samuels MD, Phone: [phone] at: 02 - [address] [id number] Director: Tex Crabtree MD, Phone: [phone] [place] MethodistQuantiFERON-TB Gold [id number] 08:14:00 Test Item Value Reference Range Interpretation Comments Quantiferon Comment The QuantiFERON -TB criteria (test Gold Plus res ult is code = 8251-1) determined by subtractingthe Nil value from eith er TB antigen (Ag) tu be. The mitogen tubeserves as a control for the test. QuantiFERON TB1 Ag 0.15 IU/mL Value (test code = 87137-3) QuantiFERON TB2 Ag 0.13 IU/mL Value (test code = 5942) Quantiferon NIL 0.13 IU/mL value (test code = 76270-4) Quantiferon 9.91 IU/mL mitogen value (test code = 68279-9) JAYANT (test code = Performed at: 02 JAYANT) - [place] [id number] [id number] Director: Tex Crabtree MD, Phone: [phone] [place] MethodistBeta-2 glycoprotein 1 antibody, IgG and [id number] 06:09:00 Test Item Value Reference Interpretation Comments Range Beta-2 <9 0- 20 GPI IgG The reference interval glycoprotein 1 units reflects a 3S D or 99th antibody, IgG percentile (test code = [place] [address]-9) thought to repr esent a potentially cli nically significantresu lt in accordance with the International Consensus State ment onthe classific ation criteria for definitive antiphospholipi d syndrome(APS). J Thromb Haem 2006;4:295-306. Beta-2 <9 0- 32 GPI IgM The reference interval glycoprotein 1 units reflects a 3S D or 99th antibody, IgM percentile ([place] = [place] [address]-7) thought to repr esent a potentially cli nically significantresu lt in accordance with the International Consensus State ment onthe classific ation criteria for definitive antiphospholipi d syndrome(APS). J Thromb Haem 2006;4:295-306. JAYANT (test code = Performed at: JAYANT) [address] [id number] Director: Nayely Denise MD, Phone: [phone] [place] MethodistCyclic citrullinated peptide antibody, [id number] 06:09:00 Test Item Value Reference Range Interpretation Comments Cyclic citrullin 8 0- 19 units peptide Ab (test Neg ative code = 11094-5) <20 Weak positive 2 0 - 39 Moderate positi ve 40 - 59 Strong positive >59 JAYANT (test code = Performed at: ) [address] [id number] Director: Nayely Denise MD, Phone: [phone] [place] MontseistLupus anticoagulant [id number] 16:11:00 Test Item Value Reference Range Interpretation Comments Dilute prothrombin 38.3 0.0- 55.0 sec time (test code = 30076-8) dPT confirm ratio 1.06 0.00- 1.40 (test code = Ratio 83150-0) Thrombin time 1:1 17.7 0.0- 23.0 sec (test code = 3243-3) PTT lupus 32.8 0.0- 51.9 sec anticoagulant (test code = 45755-7) DRVVT (test code = 38.8 0.0- 47.0 sec 6303-2) Lupus reflex Comment: No lupus interpretation (test anticoa gulant was code = 00217-4) detected. JAYANT (test code = Performed at: JAYANT) [address] [id number] Director: Nayely Denise MD, Phone: [phone] [place] MethodistCardiolipin [id number] 14:10:00 Test Item Value Reference Range Interpretation Comments Cardiolipin IgG (test 21 0- 14 GPL U/mL H code = 3181-5) Negative: <15 Indeterminate: 15 - 20 Low-Med Positive: >20 - 80 High Positive: >80 Cardiolipin IgM (test 13 0- 12 MPL U/mL H code = 3182-3) Negative: <13 Indeterminate: 13 - 20 Low-Med Positive: >20 - 80 High Positive: >80 Anticardiolipin Ab, <9 0- 11 APL U/mL IgA, qn (test code = 5076-5) Negative: <12 Indeterminate: 12 - 20 Low-Med Positive: >20 - 80 High Positive: >80 JAYANT (test code = JAYANT) Performed at: [address] [place] [id number] Director: Nayely Denise MD, Phone: [phone] Lab Interpretation Abnormal (test code = 62364-0) [place] JewHistone Ab, [id number] 12:10:00 Test Item Value Reference Range Interpretation Comments Histone Ab (test code 8.5 0.0- 0.9 Units H = 13545-8) Negative <1.0 Weak Positive 1.0 - 1.5 Moderate Positive 1.6 - 2.5 Strong Positive >2.5 JAYANT (test code = JAYANT) Performed at: [address] [place] [id number] Director: Nayely Denise MD, Phone: [phone] Lab Interpretation Abnormal (test code = 28755-8) [place] MethodistSedimentation [id number] 06:09:00 Test Item Value Reference Range Interpretation Comments Sedimentation rate (test 49 0- 32 mm/hr H code = 4537-7) JAYANT (test code = JAYANT) Performed at: [address] [place] [id number] Director: Eris Samuels MD, Phone: [phone] Lab Interpretation (test Abnormal code = 26059-3) [place] MethodistSSA/SSB [id number] 14:10:00 Test Item Value Reference Range Interpretation Comments Sjogren's SS-A antibody >8.0 0.0- 0.9 AI H (test code = 96851-5) Sjogren's SS-B antibody >8.0 0.0- 0.9 AI H (test code = 79739-8) JAYANT (test code = JAYANT) Performed at: [address] [place] [id number] Director: Eris Samuels MD, Phone: [phone] Lab Interpretation (test Abnormal code = 09227-0) [place] MethodistScl-70 [id number] 14:10:00 Test Item Value Reference Range Interpretation Comments Scleroderma SCL-70 Ab <0.2 0.0- 0.9 AI (test code = 16070-1) JAYANT (test code = JAYANT) Performed at: [address] [place] [id number] Director: Eris Samuels MD, Phone: [phone] [place] MethodistAnticentromere B [id number] 14:10:00 Test Item Value Reference Range Interpretation Comments Centromere antibody <0.2 0.0- 0.9 AI (test code = 30667-3) JAYANT (test code = JAYANT) Performed at: [address] [place] [address] [id number] Director: Eris Samuels MD, Phone: [phone] [place] MethodistC-reactive [id number] 12:09:00 Test Item Value Reference Range Interpretation Comments CRP (test code = <1 0-10 1988-5) JAYANT (test code = Performed at: - [facility]) Lab[address] [id number] Director: Eris Samuels MD, Phone: [phone] [place] MethodistRheumatoid [id number] 12:09:00 Test Item Value Reference Range Interpretation Comments Rheumatoid arthritis 96.6 0.0- 13.9 IU/mL H latex turbid (test code = 29667-9) JAYANT (test code = JAYANT) Performed at: [address] [place] [address] [id number] Director: Eris Samuels MD, Phone: [phone] Lab Interpretation (test Abnormal code = 36612-4) [place] MethodistUrinalysis, automated with [id number] 12:09:00 Test Item Value Reference Range Interpretation Comments Specific gravity, 1.013 1.005-1.030 urine (test code = 2965-2) pH, urine (test code 6.0 5.0-7.5 = 5803-2) Color, UA (test code Yellow Yellow = 5778-6) Appearance (test code Clear Clear = 5767-9) WBC esterase, urine Negative Negative (test code = 5799-2) Protein, UA (test 3+ Negative/Trace A code = 60679-0) Glucose, urine (test Negative Negative code = 2349-9) Ketones, UA (test Negative Negative code = 2514-8) Occult blood, urine Negative Negative (test code = 5794-3) Bilirubin, UA (test Negative Negative code = 5770-3) Urobilinogen, UA 0.2 mg/dL 0.2-1 (test code = 33532-5) Nitrite, UA (test Negative Negative code = 5802-4) Microscopic See below: Microscopic was examination (test indicated and was code = 13513-6) performed. JAYANT (test code = JAYANT) Performed at: [address] [place] [address] [id number] Director: Eris Samuels MD, Phone: [phone] Lab Interpretation Abnormal (test code = 51324-0) [place] MethodistMicroscopic [id number] 12:09:00 Test Item Value Reference Range Interpretation Comments WBC, UA (test code = 0-5 0- 5 /hpf 5821-4) RBC, UA (test code = 0-2 0- 2 /hpf 45111-3) Epithelial cells (non 0-10 0- 10 /hpf renal) (test code = 5787-7) Mucus, UA (test code = Present Not Estab. 8247-9) Bacteria, UA (test code Few None seen/Few = 5769-5) JAYANT (test code = JAYANT) Performed at: [address] [place] [address] [id number] Director: Eris Samuels MD, Phone: [phone] [place] MethodistComprehensive metabolic [id number] 06:08:00 Test Item Value Reference Range Interpretation Comments Glucose (test code = 76 mg/dL 65-99 2345-7) BUN (test code = 3094-0) 10 mg/dL 6-20 Creatinine (test code = 0.81 mg/dL 0.57-1 2160-0) EGFR Non-Afr. Turkish 99 mL/min/1.73 >59 (test code = 2775) EGFR 114 mL/min/1.73 >59 (test code = 2774) BUN/creatinine ratio 12 9-23 (test code = 3097-3) Sodium (test code = 136 mmol/L 553-288 2517-2) Potassium (test code = 4.4 mmol/L 3.5-5.2 2823-3) Chloride (test code = 104 mmol/L 96-106 2075-0) CO2 (test code = 8-9) 23 mmol/L 20-29 Calcium (test code = 7.9 mg/dL 8.7-10.2 L 76121-4) Protein (test code = 6.7 g/dL 6-8.5 2885-2) Albumin, S (test code = 2.0 g/dL 3.9-5 L 1751-7) Globulin, total (test 4.7 g/dL 1.5-4.5 H code = 01695-9) Albumin/globulin ratio 0.4 1.2-2.2 L (test code = 1759-0) Total bilirubin (test 0.3 mg/dL 0-1.2 code = 1974-2) Alkaline phosphatase 34 39- 117 IU/L L (test code = 6768-6) AST (test code = 1920-8) 17 0- 40 IU/L ALT (test code = 1742-6) 9 0- 32 IU/L JAYANT (test code = JAYANT) Performed at: [facility] [id number] Director: Eris Samuels MD, Phone: [phone] Lab Interpretation (test Abnormal code = 01632-1) [facility] with platelet and [id number] 06:08:00 Test Item Value Reference Range Interpretation Comments WBC (test code = 6690-2) 3.1 3.4- 10.8 x10E3/uL L RBC (test code = 789-8) 3.98 3.77- 5.28 x10E6/uL HGB (test code = 718-7) 10.7 g/dL 11.1-15.9 L HCT (test code = 4544-3) 33.7 % 34-46.6 L MCV (test code = 787-2) 85 fL 79-97 MCH (test code = 785-6) 26.9 pg 26.6-33 MCHC (test code = 786-4) 31.8 g/dL 31.5-35.7 RDW (test code = 788-0) 15.6 % 11.7-15.4 H Platelet count (test 267 150- 450 x10E3/uL code = 777-3) Neutrophils (test code = 57 % Not Estab. 770-8) Lymphocytes (test code = 33 % Not Estab. 736-9) Monocytes (test code = 8 % Not Estab. 5905-5) Eosinophils (test code = 1 % Not Estab. 713-8) Basophils (test code = 0 % Not Estab. 706-2) Neutrophils, absolute 1.8 1.4- 7.0 x10E3/uL (test code = 751-8) Lymphocytes, absolute 1.0 0.7- 3.1 x10E3/uL (test code = 731-0) Monocytes, absolute 0.2 0.1- 0.9 x10E3/uL (test code = 742-7) Eosinophils, absolute 0.0 0.0- 0.4 x10E3/uL (test code = 711-2) Basophils, absolute 0.0 0.0- 0.2 x10E3/uL (test code = 704-7) Immature granulocytes 1 % Not Estab. (test code = 00994-7) Immature grans (abs) 0.0 0.0- 0.1 x10E3/uL (test code = 83035-3) JAYANT (test code = JAYANT) Performed at: [facility] [id number] Director: Eris Samuels MD, Phone: [phone] Lab Interpretation (test Abnormal code = 04557-2) [facility] Chest Wo [id number] 19:10:47Hm Interface, Radiology Results 03/27/2020 7:13 PM CDTEXAMINATION: CT CHEST WO CONTRASTCL INICAL HISTORY: I31.3 Pericardial effusion (noninflammatory), pericardial effusion SLETECHNIQUE: Multi-detector computed axial tomography (CAT) of the chest was performed without IV iodinated contrast. Coronal maximum intensity projections of the chest, and sagittal and coronal computerized reformatted images of the chest were created at a workstation and archived for review.DOSE REDUCTION: CT imaging was performed with iterative reconstruction technique and/or automated exposure control to reduce radiation dose.COMPARISON: None.IMPRESSION: 1.Serositis secondary to systemic lupus erythematosus: Moderate circumferential pericardial effusion without CT evidence of tamponade and trace bilateral pleural effusions are also seen.2.Bilateral multifocal linear subsegmental atelectasis. No evidence of pneumonitis.3.Bilateral axillary and subpectoral lymphadenopathy is a common finding associated with systemic lupus arithmetic ptosis.FINDINGS:Moderate circumferential low attenuation pericardial effusionmeasure up to 1.9 cm in thickness[address] No [address] evidence of tamponade.Heart is normal in size. No coronary artery calcification.Aorta is nonaneurysmal and without intimal calcification. Pulmonary artery is normal in diameter.Clustered subcentimeter bilateral axillary and subpectoral lymph nodes. Subcentimeter lower internal jugular, prevascular, and paratracheal lymph nodes are also present.No mediastinal mass, thyroid nodule, or abnormality of the esophagus.Bilateral multifocal linear subsegmental atelectasis and trace low- attenuation pleural effusions.No acute or suspicious osseous lesion is identified.[facility]-[id number] Jew
[2020-04-08 00:55] LABS: Protime INR 0.97
[2020-04-08 01:01] LABS: Absolute Lymphocytes (CBC) 1.4 K/uL (0.7-4.9); Basophils % 0.6 % (0-1.3); Hematocrit 27.5 % (36.0-45.0); Lymphocytes % 19.9 % (15.3-44.8); MPV 9.7 fL (7.6-11.3); RBC Red Blood Cell Count 3.37 M/uL (3.86-4.86)
[2020-04-08 01:14] LABS: ALT/SGPT 25 U/L (12-78); AST/SGOT 25 U/L (15-37); Albumin 1.3 g/dL (3.4-5.0); Alkaline Phosphatase 30 U/L (45-117); BUN Blood Urea Nitrogen 20 mg/dL (7-18); Bicarbonate 22 mmol/L (21-32); Bilirubin Direct < 0.1 mg/dL (0-0.2); Bilirubin Total 0.2 mg/dL (0.2-1.0); Glucose Level 114 mg/dL (74-106); Magnesium 2.2 mg/dL (1.8-2.4); NT PRO-BNP 155 pg/mL (<125); Potassium 4.1 mmol/L (3.5-5.1); Protein, Total 7.3 g/dL (6.4-8.2); Sodium Level 138 mmol/L (136-145); Troponin (Emerg Dept Use Only) < 0.02 ng/mL (0.0-0.045)
[2020-04-08] MEDS ORDERED: KETOROLAC 30 MG/ML INJ ONE (03:02)
--- NOTE | 2020-04-08 03:08 | EDPHYS ---
Physician Documentation [facility] Name: Nida Alcantara Age: 29 yrs Sex: Female : 1990 Arrival Date: 04/08/2020 Time: 00:20 Bed 4 Private MD: ED Physician Beto Moreau HPI: 04/08 02:17 This 29 yrs old Black Female presents to ER via EMS with complaints of chest pain. tw4 02:17 The patient or guardian reports chest pain that is located primarily in the anterior tw4 chest wall. Associated signs and symptoms: The patient has no apparent associated signs or symptoms. The chest pain is described as radiates to dull. Duration: The patient or guardian reports a single episode. Modifying factors: The symptoms are alleviated by nothing. the symptoms are aggravated by nothing. Severity of pain: At its worst the pain was moderate in the emergency department the pain is unchanged. 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 - Social history:: Smoking status: Patient denies any tobacco usage or history of. ROS: 02:17 Constitutional: Negative for fever, chills, and weight loss, Eyes: Negative for injury, tw4 pain, redness, and discharge, Respiratory: Negative for shortness of breath, cough, wheezing, and pleuritic chest pain, Abdomen/GI: Negative for abdominal pain, nausea, vomiting, diarrhea, and constipation, MS/Extremity: Negative for injury and deformity, Skin: Negative for injury, rash, and discoloration, Neuro: Negative for headache, weakness, numbness, tingling, and seizure. 02:17 Cardiovascular: Positive for chest pain, Negative for edema, orthopnea, palpitations, paroxysmal nocturnal dyspnea. Exam: 02:17 Constitutional: This is a well developed, well nourished patient who is awake, alert, tw4 and in no acute distress. Head/Face: Normocephalic, atraumatic. Chest/axilla: Normal chest wall appearance and motion. Nontender with no deformity. No lesions are appreciated. Cardiovascular: Regular rate and rhythm with a normal S1 and S2. No gallops, murmurs, or rubs. Normal PMI, no JVD. No pulse deficits. Respiratory: Lungs have equal breath sounds bilaterally, clear to auscultation and percussion. No rales, rhonchi or wheezes noted. No increased work of breathing, no retractions or nasal flaring. Abdomen/GI: Soft, non-tender, with normal bowel sounds. No distension or tympany. No guarding or rebound. No evidence of tenderness throughout. Vital Signs: 00:23 BP 167 / 99; Pulse 65; Resp 17 S; Temp 98.4(O); Pulse Ox 100% on R/A; Weight 81.65 kg jd3 (R); Height 5 ft. 6 in. (167.64 cm) (R); Pain 3/10; 01:56 BP 148 / 99; Pulse 62; Resp 18; Pulse Ox 100% on R/A; mg2 02:59 BP 136 / 94; Pulse 59; Resp 16 S; Pulse Ox 98% on R/A; jd3 00:23 Body Mass Index 29.05 (81.65 kg, 167.64 cm) jd3 MDM: 00:23 Patient medically screened. tw4 02:17 Differential diagnosis: chest wall pain, pneumonia, pulmonary embolus. Data reviewed: tw4 vital signs, nurses notes. Data reviewed: lab test result(s), cardiac enzymes, CBC, electrolytes, EKG, radiologic studies, plain films. Data interpreted: Pulse oximetry: Interpretation: normal. Counseling: I had a detailed discussion with the patient and/or guardian regarding: the historical points, exam findings, and any diagnostic results supporting the discharge/admit diagnosis, lab results, radiology results. Special discussion: Based on the patient's history, exam, and Dx evaluation, there is no indication for emergent intervention or inpatient Tx. It is understood by the patient/guardian that if the Sx's persist or worsen they need to return immediately for re-evaluation. I discussed with the patient/guardian in detail that at this point there is no indication for admission to the hospital. It is understood, however, that if the symptoms persist or worsen the patient needs to return immediately for re-evaluation. 03:06 HEART Score: History: Slightly Suspicious (0), ECG: Normal (0), Age: < or = 45 years tw (0), Risk Factors: No Risk Factors Known (0), Troponin: < or = 1 x Normal Limit (0), Total Score = 0. Test interpretation: by ED physician or midlevel provider: ECG, plain radiologic studies. 04/08 00:23 Order name: Basic Metabolic Panel 04/08 00:23 Order name: CBC with Diff 04/08 00:47 Order name: Basic Metabolic Panel; Complete Time: 02: EDMS 04/08 02:31 Interpretation: Normal except: CL 110; GLUC 114; BUN 20; CA 7.5. 04/08 00:47 Order name: Liver (Hepatic) Function; Complete Time: 02:26 04/08 02:26 Interpretation: Normal except: ALK 30; ALB 1.3; GLOB 6.0; A/G 0.2. 04/08 00:47 Order name: Troponin (Emerg Dept Use Only); Complete Time: 02:26 04/08 02:29 Interpretation: Within normal limits: TROPED < 0.02. 04/08 00:47 Order name: NT PRO-BNP; Complete Time: 02:04/08 02:26 Interpretation: Normal except: NT PRO-BNP 155. 04/08 00:48 Order name: Magnesium; Complete Time: 02:04/08 02:30 Interpretation: Within normal limits: MG 2.2. 04/08 00:48 Order name: CBC with Automated Diff; Complete Time: 02:MS 04/08 02:31 Interpretation: Normal except: RBC 3.37; HGB 9.5; HCT 27.5; ARUNA% 76.2. 04/08 00:48 Order name: Protime (+INR); Complete Time: 02:26 04/08 02:30 Interpretation: Within normal limits: PT 11.5. 04/08 00:23 Order name: XRAY Chest (1 view) 04/08 00:23 Order name: EKG; Complete Time: 01:21 04/08 00:23 Order name: Cardiac monitoring; Complete Time: 00:04/08 00:23 Order name: EKG - Nurse/Tech; Complete Time: :04/08 00:23 Order name: IV Saline Lock; Complete Time: :04/08 00:23 Order name: Labs collected and sent; Complete Time: 00:04/08 00:23 Order name: O2 Per Protocol; Complete Time: 04/08 00:23 Order name: O2 Sat Monitoring; Complete Time: : EC:17 Rate is 58 beats/min. Rhythm is regular. QRS Mcgregor is Normal. KS interval is normal. QRS tw4 interval is normal. QT interval is normal. No Q waves. T waves are Normal. No ST changes noted. Clinical impression: Sinus bradycardia. Interpreted by me. Reviewed by me. Administered Medications: 02:59 Not Given (Patient Refused): TORadol 30 mg IVP once jd3 Disposition: 04/08/20 03:07 Discharged to Home. Impression: Other chest pain. - Condition is Stable. - Discharge Instructions: Nonspecific Chest Pain, Chest Pain Observation. - Medication Reconciliation Form, Thank You Letter, Antibiotic Education, Prescription Opioid Use form. - Follow up: Private Physician; When: Upon discharge from the Emergency Department; Reason: Recheck today's complaints, Continuance of care, Re-evaluation by your physician. - Problem is new. - Symptoms have improved. Signatures: Dispatcher [employer] Nikita Orosco RN RN jd3 Wadley, Terrence, MD MD tw4 Corrections: (The following items were deleted from the chart) 02:03 01:21 Basic Metabolic Panel ordered. [facility] 02:03 01:21 CBC with Automated Diff ordered. [facility] 02:03 01:21 HEPATIC FUNCTION+C.LAB.BRZ ordered. [facility] 02:03 01:21 MAGNESIUM+C.LAB.BRZ ordered. [facility] 02:03 01:21 PROBNP+C.LAB.BRZ ordered. [facility] 02:03 01:21 PROTIME (+INR)+COAG.LAB.BRZ ordered. [facility] 02:03 01:21 TROPONIN (EMERG DEPT USE ONLY)+C.LAB.BRZ ordered. [facility] EDMS 02:31 02:26 Normal except: CL 110; GLUC 114; BUN 20. tw4 tw4 02:31 02:27 Normal except: RBC 3.37; HGB 9.5; HCT 27.5. tw4 tw4 03:29 03:07 04/08/2020 03:07 Discharged to Home. Impression: Other chest pain. Condition is jd3 Stable. Forms are Medication Reconciliation Form, Thank You Letter, Antibiotic Education, Prescription Opioid Use. Follow up: Private Physician; When: Upon discharge from the Emergency Department; Reason: Recheck today's complaints, Continuance of care, Re-evaluation by your physician. Problem is new. Symptoms have improved. tw4
--- NOTE | 2020-04-08 03:08 | ER ---
Nurse's Notes [facility] Name: Nida Alcantara Age: 29 yrs Sex: Female : 1990 Arrival Date: 04/08/2020 Time: 00:20 Bed 4 Private MD: Diagnosis: Other chest pain Presentation: 04/08 00:21 Chief complaint: EMS states: "pt reporting she was having some lower back pain around jd3 her kidneys and shortly after followed by chest pain. her blood pressure was taken and it was very high with 190s systolic and 100s diastolics. we gave 1 of nitro and she is reporting decreased chest pain at this time.". Coronavirus screen: Proceed with normal triage. Ebola Screen: Patient negative for fever greater than or equal to 101.5 degrees Fahrenheit, and additional compatible Ebola Virus Disease symptoms. Initial Sepsis Screen: Does the patient meet any 2 criteria? No. Patient's initial sepsis screen is negative. Does the patient have a suspected source of infection? No. Patient's initial sepsis screen is negative. Risk Assessment: Do you want to hurt yourself or someone else? Patient reports no desire to harm self or others. Onset of symptoms was April 08, 2020. 00:21 Method Of Arrival: EMS: [facility] jd3 00:21 Acuity: VICK 3 jd3 LGSW: 03:00 LMP N/A - Irregular menses jd3 Historical: - Allergies: 00:27 No Known Allergies; jd3 - Home Meds: 00:27 Lasix Oral [Active]; spironolactone Oral [Active]; rosuvastatin oral oral [Active]; jd3 mycophenolate sodium oral oral [Active]; - PMHx: 00:27 Lupus; paricardial effusion; jd3 - PSHx: 00:27 None; jd3 - Immunization history:: Adult Immunizations up to date. - Social history:: Smoking status: Patient denies any tobacco usage or history of. Screenin:28 Abuse screen: Denies threats or abuse. Nutritional screening: No deficits noted. jd3 Tuberculosis screening: No symptoms or risk factors identified. Fall Risk Ambulatory Aid- None/Bed Rest/Nurse Assist (0 pts). Gait- Normal/Bed Rest/Wheelchair (0 pts) Mental Status- Oriented to own ability (0 pts). Total Stokes Fall Scale indicates No Risk (0-24 pts). Assessment: 00:27 General: Appears in no apparent distress. comfortable, Behavior is calm, cooperative, jd3 appropriate for age. Pain: Complains of pain in chest Quality of pain is described as pressure. Neuro: Level of Consciousness is awake, alert, obeys commands, Oriented to person, place, time, situation. Cardiovascular: Reports chest pain, Capillary refill < 3 seconds Patient's skin is warm and dry. Rhythm is regular. Respiratory: Airway is patent Respiratory effort is even, unlabored, Respiratory pattern is regular, symmetrical, Denies cough, shortness of breath. GI: No signs and/or symptoms were reported involving the gastrointestinal system. Patient currently denies nausea, vomiting. : No signs and/or symptoms were reported regarding the genitourinary system. EENT: No signs and/or symptoms were reported regarding the EENT system. Derm: Skin is intact, Skin is dry, Skin is normal, Skin temperature is warm. Musculoskeletal: Circulation, motion, and sensation intact. Range of motion: intact in all extremities. 01:57 Reassessment: Patient appears in no apparent distress at this time. Patient and/or mg2 family updated on plan of care and expected duration. Pain level reassessed. Patient is alert, oriented x 3, equal unlabored respirations, skin warm/dry/pink. Vital Signs: 00:23 BP 167 / 99; Pulse 65; Resp 17 S; Temp 98.4(O); Pulse Ox 100% on R/A; Weight 81.65 kg jd3 (R); Height 5 ft. 6 in. (167.64 cm) (R); Pain 3/10; 01:56 BP 148 / 99; Pulse 62; Resp 18; Pulse Ox 100% on R/A; mg2 02:59 BP 136 / 94; Pulse 59; Resp 16 S; Pulse Ox 98% on R/A; jd3 00:23 Body Mass Index 29.05 (81.65 kg, 167.64 cm) jd3 ED Course: 00:20 Patient arrived in ED. jd3 00:23 Beto Moreau MD is Attending Physician. tw4 00:23 Triage completed. jd3 00:24 Arm band placed on. jd3 00:28 Nikita Vega RN is Primary Nurse. jd3 00:28 Patient has correct armband on for positive identification. Bed in low position. Call jd3 light in reach. Side rails up X2. phototypesetting equipment monitor on. Pulse ox on. NIBP on. 00:41 No provider procedures requiring assistance completed. Maintain EMS IV. Dressing mg2 intact. Good blood return noted. Site clean \\T\\ dry. Gauge \\T\\ site: 20 \\T\\ rh. 02:48 XRAY Chest (1 view) In Process Unspecified. EDMS 03:00 IV discontinued, intact, bleeding controlled, No redness/swelling at site. Pressure jd3 dressing applied. Administered Medications: 02:59 Not Given (Patient Refused): TORadol 30 mg IVP once jd3 Outcome: 03:00 Condition: stable jd3 03:00 Discharge instructions given to patient, Instructed on discharge instructions, follow up and referral plans. Demonstrated understanding of instructions, follow-up care. 03:07 Discharge ordered by . tw4 03:28 Discharged to home ambulatory. jd3 03:29 Patient left the ED. jd3 Signatures: Dispatcher [employer] Nikita Reynoso, RN RN jd3 Beto Moreau MD MD tw4 Lester Pina RN RN mg2
[2020-04-08 04:02] VITALS: TEMP 98.4
[2020-04-08 04:04] VITALS: BP 136/94; O2SAT 98
--- NOTE | 2020-04-08 08:41 | RAD REPORT ---
EXAM DESCRIPTION: Khadijah Single View04/08/2020 2:48 am CLINICAL HISTORY: Chest pain FINDINGS: The lungs appear clear of acute infiltrate. Cardiac silhouette is enlarged IMPRESSION: Enlargement of the cardiac silhouette. CT scan March 25, 2020 demonstrated a pericardial effusion
== END 2020-04-08 03:29 | disposition home or self-care (01) ==
LOC: ER 00:12
DX: R07.89 Other chest pain (principal)
CPT/HCPCS: 36415; 71045; 80048; 80076; 83735; 83880; 84484; 85025; 85610; 93005; 99284